=== PATIENT | female | born 1940 | race Caucasian/White ===

== ENCOUNTER 2018-11-28 06:12 | Inpatient (IN) | payer OTHER ==
[2018-11-19 12:38] VITALS: BMI 29.8
[2018-11-28] MEDS ORDERED: TRANEXAMIC ACID 1000 MG/10 ML VIAL IVPUSH ONE (06:28)
[2018-11-28] MEDS ORDERED: CEFAZOLIN 2 GM in DEXTROSE 5%-WATER - 50 ML IVPB ONE (06:28)
[2018-11-28] MEDS ORDERED: VANCOMYCIN 1,000 MG in DEXTROSE 5%-WATER - 250 ML IVPB ONE (06:28)
[2018-11-28] MEDS ORDERED: MIDAZOLAM HCL 2 MG/2 ML SINGLE DOSE VIAL ONE ×2 (06:50→09:32)
[2018-11-28] MEDS ORDERED: SODIUM CHLORIDE 0.9% P/F 10 ML VIAL IJ ONE (06:51)
[2018-11-28] MEDS ORDERED: BUPIVACAINE LIPOSOME/PF (EXPAREL) 266 MG/20 ML VIAL ONE (06:51)
[2018-11-28] MEDS ORDERED: BUPIVACAINE HCL/PF 0.5% (5MG/ML) 10 ML VIAL ONE (07:12)
[2018-11-28] MEDS ORDERED: ceFAZolin SODIUM 1 GM VIAL ONE (07:15)
[2018-11-28] MEDS ORDERED: SUCCINYLCHOLINE CHLORIDE 200 MG/10 ML VIAL ONE (07:16)
[2018-11-28] MEDS ORDERED: PROPOFOL 20 ML ONE ×5 (07:16)
[2018-11-28] MEDS ORDERED: ePHEDrine SULFATE 50 MG/1 ML AMPULE ONE (07:17)
[2018-11-28] MEDS ORDERED: BENZOIN/ALOE VERA/STORAX/TOLU 58 ML BOTTLE ONE (09:40)
[2018-11-28] MEDS ORDERED: MAGNESIUM HYDROX 2400MG/30ML ORAL SUSPENSION 30 ML CUP PO PRN (09:52)
[2018-11-28] MEDS ORDERED: ONDANSETRON 4 MG/2 ML VIAL IVPUSH PRN ×2 (09:52→10:58)
[2018-11-28] MEDS ORDERED: MAG HYDROX/AL HYDROX/SIMETH 30 ML UNIT-DOSE CUP PO PRN (09:52)
--- NOTE | 2018-11-28 09:57 | PN ---
Progress Note (short form) - Note Progress Note: 78F s/p RIGHT total knee replacement POD #0. -Pain control. -DVT PPx: -Chemical: Aspirin 81mg PO BID x 6 weeks post-op. -Mechanical: POP's, SCD's. -Incentive spirometry q15 min. -PT/OT/Rehab, OOB. -WBAT RLE. -Post-op Ancef x 2 doses. -f/u post-op TOV: 8 hours max. -f/u AM labs. -f/u drain output. -Diet as tolerated. -Care per medical hospitalist team. -Discharge planning: f/u [facility] [place] Office Monday12/07/2018; call for appointment . -Will follow. Alvin No MD (Orthopaedic Surgery).
--- NOTE | 2018-11-28 09:59 | OP ---
Operative Note - Note: Operative Date: 11/28/18 Pre-Operative Diagnosis: Right knee DJD Operation: Right total knee replacement Implants: Анна [employer]athlon. Femur - 4. Tibia - 4. Poly - 9mm, PS. Patella - 27mm, symmetric Surgeon: Alvin No Manager Convention: Jt No Anesthesiologist/NATIONAL SALES TRAINER: Moy Mcconnell Anesthesia: Spinal Specimens Removed: Bone, soft tissue Estimated Blood Loss (mls): 0 Drains & Tubes with Location: 1 x deep HemoVac Fluid Volume Replaced (mls): 1,000 (Crystalloid) Operative Report Dictated: Yes
[2018-11-28] MEDS ORDERED: PATIENT'S OWN MEDICATION (NON-FORMULARY) (Pravastatin Sodium [Pravastatin Sodium] 20 MG) PO SCH (10:00)
[2018-11-28] MEDS ORDERED: PATIENT'S OWN MEDICATION (NON-FORMULARY) (Linaclotide [Linzess] 145 MCG) PO SCH (10:00)
[2018-11-28] MEDS ORDERED: LACTATED RINGERS SOLUTION 1,000 ML IV SCH (10:00)
[2018-11-28] MEDS ORDERED: PROMETHAZINE HCL 25 MG/1 ML VIAL IVPUSH PRN (10:58)
[2018-11-28] MEDS: ACETAMINOPHEN 325 MG TABLET (FP) PO SCH ×2 (12:15→17:56)
[2018-11-28] MEDS ORDERED: ACETAMINOPHEN 325 MG TABLET (FP) ONE (12:19)
[2018-11-28] MEDS: oxyCODONE HCL 5 MG TABLET PO PRN ×4 (13:00→20:35)
[2018-11-28] MEDS ORDERED: oxyCODONE HCL 5 MG TABLET ONE (13:02)
--- NOTE | 2018-11-28 13:19 | OP ---
DATE OF OPERATION: 11/28/2018 SURGEON: Alvin No MD MINE SUPERINTENDENT: Jt No MD, ADWOA Lee PREOPERATIVE DIAGNOSIS: Right tricompartmental osteoarthritis, knee, with 5- degree fixed flexion deformity. POSTOPERATIVE DIAGNOSIS: Protrusio acetabuli with secondary osteoarthritis, right hip. OPERATION PERFORMED: Right posterior stabilized cemented total knee arthroplasty ([place]). ANESTHESIA: Spinal anesthesia with peripheral nerve block and conscious sedation. ANTIBIOTICS GIVEN: Kefzol 2 g, vancomycin 1 g preoperative. Kefzol 1 g given at the end of the procedure. OPERATION IN DETAIL: The patient was correctly identified and brought in the operating room. The right lower extremity was prepped and draped in the routine manner with Betadine scrub solution, wiped with alcohol, and DuraPrep was applied. Time-out was called. Imaging was available for intraoperative evaluation. Preoperative assessment revealed a fixed varus deformity of about 5 degrees and a fixed flexed deformity of about 7-10 degrees. With the knee flexed in the midline incision performed, the dissection was taken through subcutaneous tissue to the quadriceps mechanism. A subvastus approach was utilized in the following manner. The soft tissue of the proximal medial aspect of the tibia was dissected off the bone. The plane of the epimysium was identified of the quadriceps vastus medialis muscle, and this was dissected completely off the muscle, extending the dissection right to the posterior aspect of the muscle and stripping it, freeing it off the intramuscular septum largely with finger dissection. Any vascular structures were itemized using Bipolar Bovie. The dissection from the proximal tibia was then curved in a hockey stick fashion parallel to the border of vastus medialis approximately 1 inch distal to that. This enabled a cuff of soft tissue to be left on the muscle for later closure attachment purposes. The muscle was teased off the posterior elements of the bone of the femur as well as the intramuscular septum, and a blunt Hohmann placed under the muscle once the suprapatellar pouch was simply transected using the Reilly scissors to gain entrance right around the back of the femur on the lateral side. This gave easy access to the patella. Using a Hohmann and 2 sharp clamps placed into the quadriceps tendon and patellar ligament, the patellar cut was made, and a 27-mm jig applied for the lug holes appropriately. The osteotomy cut was made from patellar ligament to quadriceps tendon. Once this had been performed , the Hoffa fat pad was resected and this enabled easy exposure of the tibial plateau. A sharp Hohmann was placed behind the tibia proximally and using the femur to lever it forward combined with hyperflexion, the entire tibial plateau was noted. The anterior horn of the lateral meniscus was transected, and the Hohmann placed deep to the meniscus laterally to expose the entire lateral tibial plateau surface. The appropriate jig extramedullary alignment system was utilized by Ayi Laile. The cut was made 90 degrees to the tibia. The measurement for the tibia was size 4. Once this had been performed, the femoral bone cuts were made. This was a 10 mm resection that is +2 mm proximalization of the joint line and the appropriate jigs were utilized to make the chamfer cuts. Whitesides line was the mainstay of the alignment of the femoral component. A size 4 femoral component utilized. All jig cuts gave excellent seating of the femoral component accordingly. Once this had been performed, the trial polyethylene of the tibia was inserted, and a polyethylene liner measuring 9 mm was utilized to articulate with the femoral component jig seating onto the distal femur. The flexion gaps were equal in flexion extension. Then, ligament balance was perfectly normal. That is, range of motion was 0 to 120 degrees with trial components in situ, and there was no instability in the coronal sagittal plane at 0 and 90 degrees. Once we were satisfied with the entire alignment, which was perfectly well seated both in the coronal sagittal and axial planes, the definitive components were cemented. First, the bone bed was thoroughly lavaged with saline, it was pulse lavaged. Cement was placed onto the back surface of the tibia and the patellar component as well as the posterior runners of the femoral component. The cementing of the bone bed was onto dry bone bed having been created as such by first lavaging any lipid material out of the interstices and then drying the bone bed with suction as well as the sponge, and then, cementing was in one stage, tibia, femur, and then patella, all extraneous cement was removed, and then, a 9 mm polyethylene liner inserted. This was the final seating. The knee was brought into full extension and put through a range of motion. All appeared well maintained. Closure subvastus approach closure with No. 1 Vicryl. Patellar tracking was normal, and no complications of the patellar tracking noted. Subcutaneous 1 and 2-0 Vicryl, skin 3-0 Monocryl with Steri-Strips. Drainage 1/8 inch Hemovac to the subvastus bed on the medial side. MD PHAN Lindsey/[id number] MTDD
[2018-11-28] MEDS: SENNOSIDES/DOCUSATE COMBO (SENNA PLUS) TABLET (UD) PO SCH ×2 (15:06→21:06)
[2018-11-28] MEDS: PANTOPRAZOLE 40 MG TABLET (FP) PO SCH (15:06)
[2018-11-28] MEDS ORDERED: KETOROLAC TROMETHAMINE 15 MG/ML VIAL IVPUSH ONE (16:19)
[2018-11-28] MEDS ORDERED: ACETAMINOPHEN 1000 MG/100 ML VIAL (NON FORMULARY) IVPB ONE (16:19)
[2018-11-28] MEDS ORDERED: KETOROLAC TROMETHAMINE 30 MG/1 ML VIAL IVPUSH ONE (16:24)
[2018-11-28] MEDS ORDERED: metFORMIN HCL 500 MG TABLET (FP) PO SCH (16:30)
--- NOTE | 2018-11-28 17:32 | CONSULT ---
Consultation: REQUESTING PROVIDER: Dr. Alvin No CONSULT REQUEST: We have been asked to medically follow this patient during the post-operative period. HISTORY OF PRESENT ILLNESS: 78 year-old female with a PMH significant for HTN, HLD, Type II NIDDM, uterine cancer s/p hysterectomy, s/p cholecystectomy. Now s/p right total knee replacement earlier today with Dr. No. REVIEW OF SYSTEMS: CONSTITUTIONAL: Absent: fever, chills, diaphoresis, generalized weakness, malaise, loss of appetite, weight change HEENT: Absent: rhinorrhea, nasal congestion, throat pain, throat swelling, difficulty swallowing, mouth swelling, ear pain, eye pain, visual changes CARDIOVASCULAR: Absent: chest pain, syncope, palpitations, irregular heart rate, lightheadedness , peripheral edema RESPIRATORY: Absent: cough, shortness of breath, dyspnea with exertion, orthopnea, wheezing, stridor, hemoptysis GASTROINTESTINAL: Absent: abdominal pain, abdominal distension, nausea, vomiting, diarrhea, constipation, melena, hematochezia GENITOURINARY: Absent: dysuria, frequency, urgency, hesitancy, hematuria, flank pain, genital pain MUSCULOSKELETAL: Absent: myalgia, arthralgia, joint swelling, back pain, neck pain SKIN: Absent: rash, itching, pallor HEMATOLOGIC/IMMUNOLOGIC: Absent: easy bleeding, easy bruising, lymphadenopathy, frequent infections ENDOCRINE: Absent: unexplained weight gain, unexplained weight loss, heat intolerance, cold intolerance NEUROLOGIC: Absent: headache, focal weakness or paresthesias, dizziness, unsteady gait, seizure, mental status changes, bladder or bowel incontinence PSYCHIATRIC: Absent: anxiety, depression, suicidal or homicidal ideation, hallucinations. PHYSICAL EXAMINATION Vital Signs - 24 hr 11/28/18 11/28/18 11/28/18 07:12 07:19 10:54 Temperature 97.6 F 97.5 F L Pulse Rate 74 79 Respiratory 16 16 Rate Blood Pressure 160/89 154/108 H O2 Sat by Pulse 98 99 Oximetry (%) 11/28/18 11/28/18 11/28/18 11:00 11:05 11:10 Temperature Pulse Rate 70 68 63 Respiratory 16 18 18 Rate Blood Pressure 142/87 136/84 128/80 O2 Sat by Pulse 98 97 97 Oximetry (%) 11/28/18 11/28/18 11/28/18 11:25 11:40 11:55 Temperature Pulse Rate 68 64 66 Respiratory 18 18 18 Rate Blood Pressure 133/71 149/75 112/85 O2 Sat by Pulse 97 96 96 Oximetry (%) 11/28/18 11/28/18 11/28/18 12:10 12:25 12:40 Temperature Pulse Rate 72 71 70 Respiratory 20 20 20 Rate Blood Pressure 147/85 169/75 150/75 O2 Sat by Pulse 96 96 98 Oximetry (%) 11/28/18 11/28/18 11/28/18 13:00 13:15 13:52 Temperature 97.8 F Pulse Rate 69 69 65 Respiratory 20 20 18 Rate Blood Pressure 146/64 142/60 140/63 O2 Sat by Pulse 96 96 97 Oximetry (%) GENERAL: Awake, alert, and fully oriented, in no acute distress. Complaining of 9/10 pain, just given pain medication. LUNGS: Breath sounds equal, clear to auscultation bilaterally. HEART: Regular rate and rhythm, normal S1 and S2 ABDOMEN: Soft, nontender, not distended UPPER EXTREMITIES: 2+ pulses, warm, well-perfused. No cyanosis. No clubbing. Cap refill <2 seconds. No peripheral edema. RIGHT LOWER EXTREMITY: Surgical dressing c/d/i; ice packs; Hemovac drain sanguinous fluid NEUROLOGICAL: Cranial nerves II-XII intact. Normal speech. Laboratory Results - last 24 hr 11/28/18 11/28/18 06:50 16:51 POC Glucometer 123 117 Active Medications Generic Name Dose Route Start Last Admin Trade Name Freq PRN Reason Stop Dose Admin Acetaminophen 650 mg 11/28/18 12:00 11/28/18 12:15 Tylenol - PO 12/01/18 11:59 650 mg Q6H ELKE Administration Al Hydroxide/Mg Hydroxide 30 ml 11/28/18 09:52 Mylanta Oral Suspension - PO Q4H PRN DYSPEPSIA Aspirin 81 mg 11/28/18 22:00 Asa - PO BID [facility] Atorvastatin Calcium 10 mg 11/28/18 22:00 Lipitor - PO HS [facility] Carvedilol 6.25 mg 11/28/18 22:00 Coreg - PO BID [facility] Fentanyl 50 mcg 11/28/18 10:58 11/28/18 12:50 Sublimaze Injection - IVPUSH 25 mcg [id number] PRN Administration PAIN-PACU ORDER X 4 DOSES ONLY Cefazolin Sodium 1 gm in 50 mls @ 100 mls/hr 11/28/18 18:00 Ancef 1 Gm Premixed Ivpb - IVPB 11/29/18 02:29 Q8H-IV ELKE Lactated Ringer's 1,000 mls @ 125 mls/hr 11/28/18 10:00 11/28/18 15:06 Lactated Ringers Solution IV 11/29/18 06:00 Not Given ASDIR [facility] Insulin Aspart 1 vial 11/28/18 22:00 Novolog Vial Sliding Scale - SQ ACHS [facility] Protocol Losartan Potassium 50 mg 11/29/18 10:00 Cozaar - PO DAILY [facility] Magnesium Hydroxide 30 ml 11/28/18 09:52 Milk Of Magnesia - PO PRN PRN CONSTIPATION Non-Formulary Medication 145 mcg 11/28/18 10:00 Linaclotide [Linzess] PO DAILY [facility] Non-Formulary Medication 1 each 11/29/18 10:00 Patient's Own Med PO DAILY [facility] Ondansetron HCl 4 mg 11/28/18 09:52 Zofran Injection IVPUSH Q6H PRN NAUSEA Oxycodone HCl 5 mg 11/28/18 10:58 11/28/18 15:01 Roxicodone - PO 5 mg Q3H PRN Administration PAIN LEVEL 1-5 Oxycodone HCl 10 mg 11/28/18 10:58 Roxicodone - PO Q3H PRN PAIN LEVEL 6-10 Pantoprazole Sodium 40 mg 11/28/18 10:00 11/28/18 15:06 Protonix - PO Not Given DAILY [facility] Promethazine HCl 12.5 mg 11/28/18 10:58 Phenergan Injection - IVPUSH Q6H PRN NAUSEA-FOR RESCUE AFTER 15 MIN Senna/Docusate Sodium 2 tablet 11/28/18 10:00 11/28/18 15:06 Pericolace - PO Not Given BID [facility] Pre op Hgb 12.6 BUN 19 Cr 0.8 Intra op Ancef x 2 Vanc x 1 LR x 1200cc ASSESSMENT/PLAN 78 year-old female with a PMH significant for HTN, HLD, Type II NIDDM. Now s/p right total knee replacement earlier today with Dr. No. Right total knee replacement --POD #0 --perioperative antibiotics per surgery --pain management per surgery --ASA 81mg BID --protonix --bowel regimen --incentive spirometry --Hemovac drain, monitor output --trial of void: 8 hours max FEN Fluids: PO intake adequate Electrolytes: replete as indicated Nutrition: regular diet DVT prophylaxis: OOB, ambulation, SCDs, TEDs, ASA 81mg BID x 6 weeks Physical therapy Dispo: We will continue to follow the patient. Thank you for this consultative opportunity. Visit type - Emergency Visit Emergency Visit: No - New Patient This patient is new to me today: Yes Date on this admission: 11/28/18 - Critical Care Critical Care patient: No
[2018-11-28] MEDS: CEFAZOLIN 1 GM/D5W 1 GM/50 ML BAG IVPB SCH (17:54)
[2018-11-28] MEDS: INSULIN SLIDING SCALE (NOVOLOG) 1 VIAL SQ SCH (21:06)
[2018-11-28] MEDS: ASPIRIN 81 MG CHEWABLE TABLETS PO SCH (21:06)
[2018-11-28] MEDS: CARVEDILOL 6.25 MG TABLET (FP) PO SCH (21:06)
[2018-11-28] MEDS: ATORVASTATIN CA 10 MG TABLET (FP) PO SCH (21:06)
[2018-11-29] MEDS: oxyCODONE HCL 5 MG TABLET PO PRN ×4 (00:25→22:19)
[2018-11-29] MEDS: ACETAMINOPHEN 325 MG TABLET (FP) PO SCH ×4 (00:26→17:21)
[2018-11-29] MEDS: CEFAZOLIN 1 GM/D5W 1 GM/50 ML BAG IVPB SCH (01:55)
[2018-11-29] MEDS: INSULIN SLIDING SCALE (NOVOLOG) 1 VIAL SQ SCH ×4 (06:20→22:48)
--- NOTE | 2018-11-29 08:04 | SPA.POSTOP ---
- POST-OP NOTE POD #0 s/p Right TKR No acute events since surgical procedure per RN notes. Patient resting comfortably in chair at bedside. C/o of a lot of incisional tenderness. Pain management via PRN meds. Ice pack in place. Denies n/v/f/c, CP or SOB. Last Vital Signs Temp Pulse Resp BP Pulse Ox 98.6 F 84 19 145/68 96 11/29/18 05:00 11/29/18 05:00 11/29/18 05:00 11/29/18 05:00 11/29/18 06:43 PE General: NAD LE: LLE unremarkable. RLE in full extension. Ice pack in place. Hemeovac on suction (sanguinous but starting to thin out). SCD's bilat. No calf tenderness or edema Problem List - Problems (1) Right knee DJD Assessment/Plan: POD #1 s/p Right TKR Con tpain management as ordered DVT PPX 1. ASA 81 mg PO BID x 6 weeks 2. TEDS & SCDs bilat Incentive Spirometer OOB with PT WBAT RLE Monitor & record drain output --> to be dc'd tomorrow f/u CBC Case Management for possible Rehab placement --> dc planning 11/30/18 Above plan discussed with Dr. Jt No and agrees Code(s): M17.11 - UNILATERAL PRIMARY OSTEOARTHRITIS, RIGHT KNEE Visit type - Case Type Case Type: Scheduled - New patient This patient is new to me today: Yes Date on this admission: 11/29/18
[2018-11-29 08:18] LABS: CALCIUM 8.9 mg/dl (8.5-10); CREATININE 0.9 mg/dl (0.55-1.3); MAGNESIUM 1.4 mg/dL (1.8-2.4); POTASSIUM 4.1 mmol/L (3.5-5.1)
[2018-11-29 09:07] LABS: HEMOGLOBIN 13.3 GM/dL (10.7-15.3); MCH 28.9 pg (25.7-33.7); MCHC 32.4 g/dl (32.0-36.0); MEAN CELL VOLUME 89.2 fl (80-96); MEAN PLT VOLUME 9.9 fl (7.5-11.1); PLATELET COUNT 213 K/MM3 (134-434); RBC 4.59 M/mm3 (3.60-5.2); RDW 14.3 % (11.6-15.6); WHITE BLOOD COUNT 5.4 K/mm3 (4.0-10.0)
[2018-11-29] MEDS: SENNOSIDES/DOCUSATE COMBO (SENNA PLUS) TABLET (UD) PO SCH ×2 (09:29→22:19)
[2018-11-29] MEDS: ASPIRIN 81 MG CHEWABLE TABLETS PO SCH ×2 (09:29→22:19)
[2018-11-29] MEDS: LOSARTAN POTASSIUM 50 MG TABLET (FP) PO SCH (09:29)
[2018-11-29] MEDS: PANTOPRAZOLE 40 MG TABLET (FP) PO SCH (09:29)
[2018-11-29] MEDS: CARVEDILOL 6.25 MG TABLET (FP) PO SCH ×2 (09:29→22:19)
--- NOTE | 2018-11-29 11:14 | PN ---
Physical Exam: SUBJECTIVE: Patient seen and examined oob to chair. Participated in PT this morning, feels she did well. Pain is OK. OBJECTIVE: Vital Signs Period Temp Pulse Resp BP Sys/Garcia Pulse Ox Last 24 Hr 97.8 F-99.1 F 64-84 18-20 112-169/56-85 96-98 GENERAL: Awake, alert, and fully oriented, in no acute distress. Complaining of 9/10 pain, just given pain medication. LUNGS: Breath sounds equal, clear to auscultation bilaterally. HEART: Regular rate and rhythm, normal S1 and S2 ABDOMEN: Soft, nontender, not distended UPPER EXTREMITIES: 2+ pulses, warm, well-perfused. No cyanosis. No clubbing. Cap refill <2 seconds. No peripheral edema. RIGHT LOWER EXTREMITY: Surgical dressing c/d/i; ice packs; Hemovac drain sanguinous fluid NEUROLOGICAL: Cranial nerves II-XII intact. Normal speech. Laboratory Results - last 24 hr 11/28/18 11/28/18 11/29/18 16:51 20:41 06:06 WBC RBC Hgb Hct MCV MCH MCHC RDW Plt Count MPV Sodium Potassium Chloride Carbon Dioxide Anion Gap BUN Creatinine Est GFR (CKD-EPI)AfAm Est GFR (CKD-EPI)NonAf POC Glucometer 117 137 115 Random Glucose Calcium Magnesium 11/29/18 11/29/18 07:10 07:10 WBC 5.4 RBC 4.59 Hgb 13.3 Hct 41.0 MCV 89.2 MCH 28.9 MCHC 32.4 RDW 14.3 Plt Count 213 MPV 9.9 Sodium 132 L Potassium 4.1 Chloride 95 L Carbon Dioxide 23 Anion Gap 14 BUN 17 Creatinine 0.9 Est GFR (CKD-EPI)AfAm 70.98 Est GFR (CKD-EPI)NonAf 61.24 POC Glucometer Random Glucose 138 H Calcium 8.9 Magnesium 1.4 L Active Medications Generic Name Dose Route Start Last Admin Trade Name Freq PRN Reason Stop Dose Admin Acetaminophen 650 mg 11/28/18 12:00 11/29/18 06:14 Tylenol - PO 12/01/18 11:59 650 mg Q6H ELKE Administration Al Hydroxide/Mg Hydroxide 30 ml 11/28/18 09:52 Mylanta Oral Suspension - PO Q4H PRN DYSPEPSIA Aspirin 81 mg 11/28/18 22:00 11/29/18 09:29 Asa - PO 81 mg BID ELKE Administration Atorvastatin Calcium 10 mg 11/28/18 22:00 11/28/18 21:06 Lipitor - PO 10 mg HS ELKE Administration Carvedilol 6.25 mg 11/28/18 22:00 11/29/18 09:29 Coreg - PO 6.25 mg BID ELKE Administration Insulin Aspart 1 vial 11/28/18 22:00 11/29/18 06:20 Novolog Vial Sliding Scale - SQ Not Given ACHS [facility] Protocol Losartan Potassium 50 mg 11/29/18 10:00 11/29/18 09:29 Cozaar - PO 50 mg DAILY [facility] Administration Magnesium Hydroxide 30 ml 11/28/18 09:52 Milk Of Magnesia - PO PRN PRN CONSTIPATION Non-Formulary Medication 145 mcg 11/28/18 10:00 Linaclotide [Linzess] PO DAILY [facility] Ondansetron HCl 4 mg 11/28/18 09:52 Zofran Injection IVPUSH Q6H PRN NAUSEA Oxycodone HCl 5 mg 11/28/18 10:58 11/29/18 00:25 Roxicodone - PO 5 mg Q3H PRN Administration PAIN LEVEL 1-5 Oxycodone HCl 10 mg 11/28/18 10:58 11/29/18 08:12 Roxicodone - PO 10 mg Q3H PRN Administration PAIN LEVEL 6-10 Pantoprazole Sodium 40 mg 11/28/18 10:00 11/29/18 09:29 Protonix - PO 40 mg DAILY [facility] Administration Senna/Docusate Sodium 2 tablet 11/28/18 10:00 11/29/18 09:29 Pericolace - PO 2 tablet BID ELKE Administration ASSESSMENT/PLAN: Pre op Hgb 12.6 BUN 19 Cr 0.8 Intra op Ancef x 2 Vanc x 1 LR x 1200cc ASSESSMENT/PLAN 78 year-old female with a PMH significant for HTN, HLD, Type II NIDDM, s/p right total knee replacement. Right total knee replacement --POD #1 --perioperative antibiotics complete --pain management per surgery --ASA 81mg BID --protonix --bowel regimen --incentive spirometry --Hemovac drain, monitor output --voiding freely Hypertension --BP stable --continue Losartan, carvedilol Hyperlipidemia --continue Lipitor Type II NIDDM --Novolog sliding scale coverage Hypomagnesemia --repleted FEN Fluids: PO intake adequate Electrolytes: replete as indicated Nutrition: regular diet DVT prophylaxis: OOB, ambulation, SCDs, TEDs, ASA 81mg BID x 6 weeks Physical therapy Dispo: We will continue to follow the patient. Thank you for this consultative opportunity. Visit type - Emergency Visit Emergency Visit: No - New Patient This patient is new to me today: No - Critical Care Critical Care patient: No
[2018-11-29] MEDS ORDERED: MAGNESIUM SULF 50% (8.12 MEQ/2 ML-1 GM VIAL) IVPB ONE (11:17)
[2018-11-29] MEDS ORDERED: MAGNESIUM SULFATE IN WATER 2 GM/50 ML IVPB IVPB ONE (11:45)
[2018-11-29] MEDS: ATORVASTATIN CA 10 MG TABLET (FP) PO SCH (22:19)
[2018-11-30] MEDS: ACETAMINOPHEN 325 MG TABLET (FP) PO SCH ×3 (01:00→12:07)
[2018-11-30] MEDS: INSULIN SLIDING SCALE (NOVOLOG) 1 VIAL SQ SCH ×2 (06:22→12:07)
[2018-11-30 07:44] LABS: HEMATOCRIT 39.6 % (32.4-45.2); HEMOGLOBIN 12.7 GM/dl (10.7-15.3); MCH 28.9 pg (25.7-33.7); MCHC 32.1 g/dl (32.0-36.0); MEAN CELL VOLUME 90.1 fl (80-96); MEAN PLT VOLUME 9.9 fl (7.5-11.1); PLATELET COUNT 203 K/MM3 (134-434); RBC 4.39 M/mm3 (3.60-5.2); RDW 13.5 % (11.6-15.6); WHITE BLOOD COUNT 7.6 K/mm3 (4.0-10.8)
--- NOTE | 2018-11-30 08:48 | PN ---
Progress Note (short form) - Note Progress Note: POD 2, s/p R TKR Pt seen and examined. States she is doing overall well. Has some pain with ambulation. Tolerating PO, passing flatus. No Bm yet. Voiding without issue. Denies cp/sob, n/v/d, calf pain/edema. Vital Signs Temp 99.2 F 11/30/18 05:00 Pulse 87 11/30/18 05:00 Resp 18 11/30/18 05:00 BP 116/41 L 11/30/18 05:00 Pulse Ox 97 11/30/18 08:37 Intake & Output 11/29/18 11/29/18 11/30/18 11:59 23:59 11:59 Output Total 10 Balance -10 Output: Drainage 10 Right Knee 10 Other: Voiding Method Toilet Toilet CBC, BMP 11/30/18 07:14 11/29/18 07:10 Gen: awake, alert, nad Resp: Unlabored on RA Ext: RLE with dressing c/d/i. HV in place with scant serosanguinous drainage in reservoir. Thigh/calf with some edema, compartments soft. Prashanth wrap removed no ecchymosis noted. Drain taken off of suction and removed without issue, tip intact. Pt tolerated well. Pressure held over ostium x 5mins with cessation of oozing. 4x4 pressure dressing applied over ostium. Neuro: 5/5 DF/PF/EHL/FHL B/L LES, SILT b/l le's. Feet warm to touch. A/P: 78 y/o F w/ PMHx HTN, HLD, Type II NIDDM, uterine cancer s/p hysterectomy, POD 2, s/p R TKR. Doing well overall. Afebrile, VSS. H/H stable. Drain output 10ml overnight -plan for d/c to rehab later today -Discharge instructions reviewed with pt and son at length, all questions answered. Pt and son verbalized understanding. d/w attendings Dr Peres
--- NOTE | 2018-11-30 09:21 | DS ---
Physical Exam: SUBJECTIVE: Patient seen and examined. States she is doing overall well. Has some pain with ambulation. Tolerating PO, passing flatus. No Bm yet. Voiding without issue. Denies cp/sob, n/v/d, calf pain/edema. OBJECTIVE: Vital Signs Temp 99.2 F 11/30/18 05:00 Pulse 87 11/30/18 05:00 Resp 18 11/30/18 05:00 BP 116/41 L 11/30/18 05:00 Pulse Ox 97 11/30/18 08:37 Intake & Output 11/29/18 11/29/18 11/30/18 11:59 23:59 11:59 Output Total 10 Balance -10 Output: Drainage 10 Right Knee 10 Other: Voiding Method Toilet Toilet PHYSICAL EXAM Gen: awake, alert, nad Resp: Unlabored on RA Ext: RLE with dressing c/d/i. HV in place with scant serosanguinous drainage in reservoir. Thigh/calf with some edema, compartments soft. Prashanth wrap removed no ecchymosis noted. Drain taken off of suction and removed without issue, tip intact. Pt tolerated well. Pressure held over ostium x 5mins with cessation of oozing. 4x4 pressure dressing applied over ostium. Neuro: 5/5 DF/PF/EHL/FHL B/L LES, SILT b/l le's. Feet warm to touch. LABS Laboratory Results - last 24 hr 11/29/18 11/29/18 11/30/18 12:07 16:58 06:14 WBC RBC Hgb Hct MCV MCH MCHC RDW Plt Count MPV POC Glucometer 121 108 116 11/30/18 07:14 WBC 7.6 RBC 4.39 Hgb 12.7 Hct 39.6 MCV 90.1 MCH 28.9 MCHC 32.1 RDW 13.5 Plt Count 203 MPV 9.9 POC Glucometer HOSPITAL COURSE: The patient was admitted to the Med-Surg Unit after an elective repair of her right knee OA. Now, s/p right TKR. An xray was obtained in the OR and confirmed hardware placement in good position with no fractures or dislocations.The day of surgery, the patient ambulated the hallways with assistance. Narcotic and non -narcotic pain management control was achieved with an oral and IV approach. POD #2, the surgical drain was removed fully intact and without incident. Diane-operative IV ABX were administered. DVT prophylaxis was achieved with SCDs , aspirin and early ambulation. The patient ambulated with Physical Therapy and rehab was recommended upon discharge. The discharge instructions and an oral pain management plan were reviewed with the patient. All questions answered. Above plan discussed with Dr. No and agreed. Date of Admission:11/28/18 Date of Discharge: 11/30/18 Minutes to complete discharge: 30 Discharge Summary Reason For Visit: PRIMARY OSTEOARTHRITIS Current Active Problems Right knee DJD (Acute) - Instructions Diet, Activity, Other Instructions: Dr. No Discharge Instructions for Knee Replacement Post Operative Instructions Physical activity Physical Therapist will come to your home for the first 5 days. You will be set up with outpatient PT at your first post-operative visit. Use assistive devices for ambulation at all times. Weight bearing as tolerated on your surgical side. Do not put pillow under knee. May put pillow under heel. Wound care Leave your surgical dressing in place. Do not change the dressing until seen by your surgeon in the office. No baths or showers. Do not submerge your incision. Do not apply any ointments or lotions to your incision. Please call the office if your dressing is soiled/dirty or is falling off. Apply Graduated Compression Stockings (TEDS) to both lower extremities - remove daily for hygiene ONLY. Diet There are no dietary restrictions. Eat healthy, high-fiber foods. Drink 6 to 8 glasses of liquid each day. This will assist in keeping your bowels are regular. Pain management Any pain prescription medication ordered should be taken as prescribed for moderate to severe pain. Do not take additional Tylenol while taking Percocet. Take Aspirin 81 mg two times a day for a total of 6 weeks to prevent blood clots. ISTOP: [phone] Call Dr. No for any of the following: Severe pain not relieved by medication Fever of 101 or higher Excessive bleeding or drainage on dressing Inability to urinate If you experience chest pain or shortness of breath, please seek emergency care immediately. Please call the office at to confirm your post-op appointment for the week following surgery. - Home Medications Comprehensive Discharge Medication List: Ambulatory Orders Aspirin [ASA -] 81 mg PO DAILY 11/19/18 Carvedilol [Coreg] 6.25 mg PO BID 11/19/18 Cholecalciferol (Vitamin D3) [Vitamin D3] 2,000 unit PO DAILY 11/19/18 Linaclotide [Linzess] 145 mcg PO DAILY 11/19/18 Losartan Potassium 50 mg PO DAILY 11/19/18 Metformin HCl [Glucophage] 500 mg PO BID 11/19/18 Pravastatin Sodium 20 mg PO DAILY 11/19/18 This patient is new to me today: Yes Date on this admission: 11/30/18 Emergency Visit: No Critical Care patient: No - Discharge Referral Referred to [facility] No
[2018-11-30] MEDS: SENNOSIDES/DOCUSATE COMBO (SENNA PLUS) TABLET (UD) PO SCH (09:55)
[2018-11-30] MEDS: LOSARTAN POTASSIUM 50 MG TABLET (FP) PO SCH (09:55)
[2018-11-30] MEDS: CARVEDILOL 6.25 MG TABLET (FP) PO SCH (09:55)
[2018-11-30] MEDS: PANTOPRAZOLE 40 MG TABLET (FP) PO SCH (09:56)
[2018-11-30] MEDS: ASPIRIN 81 MG CHEWABLE TABLETS PO SCH (09:56)
[2018-11-30] MEDS: oxyCODONE HCL 5 MG TABLET PO PRN ×2 (09:56→15:47)
[2018-11-30 14:12] VITALS: TEMP 98.4
--- NOTE | 2018-11-30 16:45 | PN ---
Physical Exam: SUBJECTIVE: Patient seen and examined OBJECTIVE: Vital Signs Period Temp Pulse Resp BP Sys/Garcia Pulse Ox Last 24 Hr 98.2 F-99.2 F 68-102 16-18 116-133/41-63 97-97 GENERAL: Awake, alert, and fully oriented, in no acute distress. Complaining of 9/10 pain, just given pain medication. LUNGS: Breath sounds equal, clear to auscultation bilaterally. HEART: Regular rate and rhythm, normal S1 and S2 ABDOMEN: Soft, nontender, not distended UPPER EXTREMITIES: 2+ pulses, warm, well-perfused. No cyanosis. No clubbing. Cap refill <2 seconds. No peripheral edema. RIGHT LOWER EXTREMITY: Surgical dressing c/d/i NEUROLOGICAL: Cranial nerves II-XII intact. Normal speech. Laboratory Results - last 24 hr 11/29/18 11/30/18 11/30/18 16:58 06:14 07:14 WBC 7.6 RBC 4.39 Hgb 12.7 Hct 39.6 MCV 90.1 MCH 28.9 MCHC 32.1 RDW 13.5 Plt Count 203 MPV 9.9 POC Glucometer 108 116 11/30/18 12:03 WBC RBC Hgb Hct MCV MCH MCHC RDW Plt Count MPV POC Glucometer 129 Active Medications Generic Name Dose Route Start Last Admin Trade Name Freq PRN Reason Stop Dose Admin Acetaminophen 650 mg 11/28/18 12:00 11/30/18 12:07 Tylenol - PO 12/01/18 11:59 650 mg Q6H ELKE Administration Al Hydroxide/Mg Hydroxide 30 ml 11/28/18 09:52 Mylanta Oral Suspension - PO Q4H PRN DYSPEPSIA Aspirin 81 mg 11/28/18 22:00 11/30/18 09:56 Asa - PO 81 mg BID ELKE Administration Atorvastatin Calcium 10 mg 11/28/18 22:00 11/29/18 22:19 Lipitor - PO 10 mg HS ELKE Administration Carvedilol 6.25 mg 11/28/18 22:00 11/30/18 09:55 Coreg - PO 6.25 mg BID ELKE Administration Insulin Aspart 1 vial 11/28/18 22:00 11/30/18 12:07 Novolog Vial Sliding Scale - SQ Not Given ACHS ELKE Protocol Losartan Potassium 50 mg 11/29/18 10:00 11/30/18 09:55 Cozaar - PO 50 mg DAILY ELKE Administration Magnesium Hydroxide 30 ml 11/28/18 09:52 Milk Of Magnesia - PO PRN PRN CONSTIPATION Non-Formulary Medication 145 mcg 11/28/18 10:00 Linaclotide [Linzess] PO DAILY ELKE Ondansetron HCl 4 mg 11/28/18 09:52 Zofran Injection IVPUSH Q6H PRN NAUSEA Oxycodone HCl 5 mg 11/28/18 10:58 11/30/18 15:47 Roxicodone - PO 5 mg Q3H PRN Administration PAIN LEVEL 1-5 Oxycodone HCl 10 mg 11/28/18 10:58 11/29/18 22:19 Roxicodone - PO 10 mg Q3H PRN Administration PAIN LEVEL 6-10 Pantoprazole Sodium 40 mg 11/28/18 10:00 11/30/18 09:56 Protonix - PO 40 mg DAILY ELKE Administration Senna/Docusate Sodium 2 tablet 11/28/18 10:00 11/30/18 09:55 Pericolace - PO 2 tablet BID ELKE Administration Pre op Hgb 12.6 BUN 19 Cr 0.8 Intra op Ancef x 2 Vanc x 1 LR x 1200cc ASSESSMENT/PLAN 78 year-old female with a PMH significant for HTN, HLD, Type II NIDDM, s/p right total knee replacement. Right total knee replacement --POD #1 --perioperative antibiotics complete --pain management per surgery --ASA 81mg BID --protonix --bowel regimen --incentive spirometry --Hemovac drain, monitor output --voiding freely Hypertension --BP stable --continue Losartan, carvedilol Hyperlipidemia --continue Lipitor Type II NIDDM --Novolog sliding scale coverage Hypomagnesemia --repleted FEN Fluids: PO intake adequate Electrolytes: replete as indicated Nutrition: regular diet DVT prophylaxis: OOB, ambulation, SCDs, TEDs, ASA 81mg BID x 6 weeks Physical therapy Dispo: We will continue to follow the patient. Thank you for this consultative opportunity. Visit type - Emergency Visit Emergency Visit: No - New Patient This patient is new to me today: No - Critical Care Critical Care patient: No
[2018-11-30 18:40] VITALS: BP 120/62; PULSE 82
--- NOTE | 2018-12-03 17:09 | PATH ---
Surgical Pathology Report Patient Name: NICO BATISTA Med. Rec. #: [id number] /Age/Gender: 1940 (Age: 78) / F Account: [id number] Location: [facility] MED-SURG Taken: 11/28/2018 Received: 11/28/2018 Reported: 12/03/2018 Physicians: Alvin No M.D. Specimen(s) Received RIGHT KNEE BONES Clinical History Primary osteoarthritis right knee Final Diagnosis RIGHT KNEE BONES, RESECTION: DEGENERATIVE JOINT DISEASE, RIGHT KNEE. Electronically Signed Inocente Rouse M.D. Gross Description Received in formalin labeled "right knee bones," is a 10.0 x 9.0 x 1.6 cm aggregate of multiple portions of bone and soft tissue. The tibial plateau measures 7.1 x 4.7 x 1.5 cm. There is a 2.6 cm in greatest dimension area of eburnation present. The remaining articular surfaces are cheney-yellow and diffusely granular. The underlying trabecular bone is yellow and hard. Software Validation Engineer sections are submitted in one cassette, following decalcification. 11/29/2018 [facility]11/29/2018
== END 2018-11-30 17:37 | DRG 470 ==
LOC: FM/S 06:12
PROVIDERS: ADMIT Orthopaedic Surgery Orthopaedic Surgery of the Spine; ATTEND Orthopaedic Surgery Orthopaedic Surgery of the Spine
PROC: 0SRC0J9 Replacement of Right Knee Joint with Synthetic Substitute, Cemented, Open Approach (ICD-10-PCS; principal; 2018-11-28 08:00)
DX: M17.11 Unilateral primary osteoarthritis, right knee (principal); E11.9 Type 2 diabetes mellitus without complications; I10 Essential (primary) hypertension; E83.42 Hypomagnesemia; M24.7 Protrusio acetabuli; Z85.42 Personal history of malignant neoplasm of other parts of uterus; Z90.710 Acquired absence of both cervix and uterus
CPT/HCPCS: 36415; 73560-TC-RT-FY; 80048; 82962; 83735; 85027; 88304-TC; 88311-TC; 94760; 97116-GP; 97163-GP; J0131

== ENCOUNTER 2022-04-27 06:08 | Day surgery (SDC) | payer OTHER ==
[2022-04-22 15:47] VITALS: BMI 27.4
[2022-04-27] MEDS ORDERED: PROPOFOL 80 ML ONE (07:26)
[2022-04-27] MEDS ORDERED: MIDAZOLAM HCL 2 MG/2 ML SINGLE DOSE VIAL ONE (07:26)
[2022-04-27] MEDS ORDERED: BUPIVACAINE HCL 50 ML ONE ×2 (07:54→08:53)
[2022-04-27] MEDS ORDERED: ceFAZolin SODIUM 1 GM VIAL ONE (08:22)
[2022-04-27] MEDS ORDERED: ONDANSETRON 4 MG/2 ML VIAL ONE (08:22)
[2022-04-27] MEDS ORDERED: DEXAMETHASONE SOD PHOSPHATE 4 MG/1 ML VIAL ONE (08:22)
[2022-04-27] MEDS ORDERED: KETOROLAC TROMETHAMINE 30 MG/1 ML VIAL ONE (08:22)
[2022-04-27] MEDS ORDERED: TRANEXAMIC ACID 1000 MG/10 ML VIAL ONE (08:59)
[2022-04-27] MEDS ORDERED: BUPIVACAINE HCL/PF 0.5% (5MG/ML) 10 ML VIAL IJ ONE (09:12)
[2022-04-27] MEDS ORDERED: oxyCODONE HCL 5 MG TABLET PO PRN ×2 (09:38)
[2022-04-27] MEDS ORDERED: ACETAMINOPHEN 1000 MG/100 ML BAG IVPB ONE (09:38)
[2022-04-27] MEDS ORDERED: PROMETHAZINE HCL 25 MG/1 ML VIAL IVPUSH PRN (09:38)
[2022-04-27] MEDS ORDERED: ONDANSETRON 4 MG/2 ML VIAL IVPUSH PRN (09:38)
[2022-04-27] MEDS ORDERED: LACTATED RINGERS SOLUTION 1,000 ML IV SCH (09:45)
[2022-04-27] MEDS ORDERED: ACETAMINOPHEN INJECTION 100 ML IVPB ONE (10:04)
[2022-04-27 13:50] VITALS: TEMP 97.3
[2022-04-27 14:00] VITALS: BP 142/71; PULSE 73; RESP 15
== END 2022-04-27 11:30 | disposition home or self-care (01) ==
LOC: FASU 06:08
PROVIDERS: ATTEND Orthopaedic Surgery Orthopaedic Surgery of the Spine
PROC: 0JNL0ZZ Release Right Upper Leg Subcutaneous Tissue and Fascia, Open Approach (ICD-10-PCS; principal; 2022-04-27 08:52)
DX: M76.31 Iliotibial band syndrome, right leg (principal)
CPT/HCPCS: 82962; 94760